=== PATIENT | female | born 1985 | race African-American/Black ===

== ENCOUNTER 2016-12-22 01:55 | Emergency (ER) | payer SELFPAY ==
[~2016-12-22] VITALS: Ht 165.1 cm; Wt 136.1 kg
[2016-12-22 02:01] VITALS: BP 182/98
--- NOTE | 2016-12-22 02:13 | PHYS DOC ---
Past Medical History Past Medical History: Other Additional Past Medical Histor: endometriosis Past Surgical History: No Surgical History Alcohol Use: Heavy Drug Use: None Adult General Chief Complaint Chief Complaint: SKIN PROBLEM HPI HPI Patient is a 31 year old female who presents with complaints of rash around her neck area and the left arm. Patient has no other complaints, and denies fevers, chills, vomiting, diarrhea, shortness of breath or throat swelling. No known exposures, no other people that she knows having similar symptoms. This has been going on for a couple months. Review of Systems Review of Systems Constitutional: Denies fever or chills [] Eyes: Denies change in visual acuity, redness, or eye pain [] HENT: Denies nasal congestion or sore throat or problems swallowing Respiratory: Denies cough or shortness of breath [] Cardiovascular: No chest discomfort GI: Denies abdominal pain, nausea, vomiting, bloody stools or diarrhea [] : Denies dysuria or hematuria [] Musculoskeletal: Denies back pain or joint pain [] Integument: Rash on the lower neck and very upper part of the chest. Neurologic: Denies headache, focal weakness or sensory changes [] Allergies Allergies Allergies Coded Allergies Type Severity Reaction Last Updated Verified No Known Drug Allergies 12/22/16 No Physical Exam Physical Exam Constitutional: Well developed, well nourished, no acute distress, non-toxic appearance. [] HENT: Normocephalic, atraumatic, oropharynx moist, no oral exudates, nose normal. Airways patent, no stridor, no drooling. Eyes: PERRLA, EOMI, conjunctiva normal, no discharge. [] Neck: Normal range of motion, no tenderness, supple, no stridor. [] Cardiovascular:Heart rate regular rhythm, no murmur, normal perfusion Lungs & Thorax: Bilateral breath sounds clear to auscultation, no tachypnea Abdomen: Bowel sounds normal, soft, no tenderness, no masses, no pulsatile masses. [] Skin: Warm, dry. Rash It appears to be in the pattern of sun exposed area around the neck. No petechia, no papules, no macules, no weeping, no desquamation. Back: Normal range of motion Extremities: No tenderness, no cyanosis ROM intact, no edema. [] Neurologic: Alert and oriented X 3, normal motor function, no focal deficits noted. Normal voice Psychologic: Affect normal, judgement normal, mood normal. [] Current Patient Data Vital Signs Vital Signs Date Time Temp Pulse Resp B/P (MAP) Pulse Ox O2 Delivery O2 Flow Rate FiO2 12/22/16 02:01 97.8 85 18 99 Room Air 97.8 EKG EKG [] Radiology/Procedures Radiology/Procedures [] Course & Med Decision Making Course & Med Decision Making Pertinent Labs and Imaging studies reviewed. (See chart for details) Patient is nontoxic and looks well, physical exam is unremarkable with the excess exceptional for nonspecific rash around the base of the neck. There doesn 't seem to be any involvement of the neck or the lungs on the time of this ED visit. This well-appearing, nontoxic patient with a chronic rash is found to be stable for outpatient follow-up. I advised the patient to follow up by one of the local clinics and receive a dermatology referral for proper evaluation by specialist. A list of clinics will be provided to the patient [] Dragon Disclaimer Dragon Disclaimer This electronic medical record was generated, in whole or in part, using a voice recognition dictation system. Departure Departure Impression: Primary Impression: Rash and nonspecific skin eruption Disposition: HOME, SELF-CARE Condition: STABLE Patient Instructions: Rash Additional Instructions: His follow-up at one of the clinics in the list provided to you and request a referral to a pet caretaker alternatively he can call [facility] and request appointment with dermatology Scripts Diphenhydramine Hcl (BENADRYL) 25 Mg Capsule 25 MG PO TID for 5 Days, #15 CAP Prov: Jaison LEWIS MD 12/22/16 Mineral Oil/Petrolatum,White (EUCERIN CREME ) 120 Gm Cream..g. 1 DON TP TID for WOUND CARE, #1 TUBE Prov: Jaison LEWIS MD 12/22/16 Jaison LEWIS MD Dec 22, 2016 02:13
[2016-12-22] MEDS ORDERED: DIPH25CA58 PO (02:27)
[2016-12-22] MEDS ORDERED: MINE120C TP (02:27)
== END 2016-12-22 02:33 | disposition home or self-care (01) ==
LOC: ER 01:55
DX: R21 Rash and other nonspecific skin eruption (principal)
CPT/HCPCS: 99282; 99283

== ENCOUNTER 2019-04-10 02:25 | Emergency (ER) | payer OTHER ==
[~2019-04-10] VITALS: Ht 165.1 cm; Wt 147.9 kg
[~2019-04-10 02:25] MED LIST: DIPH25CA58 PO; MINE120C TP
[2019-04-10 02:35] VITALS: BP 165/115
[2019-04-10] MEDS ORDERED: HYDROcodone/APAP 5/325MG 1 TAB TABLET PO ONE (03:30)
--- NOTE | 2019-04-10 03:31 | PHYS DOC ---
General Chief Complaint: FINGER INJURY Stated Complaint: RIGHT RING FINGER SWELLING Time Seen by MD: 02:26 Source: patient Exam Limitations: no limitations History of Present Illness Initial Comments Patient is a 33 year old AA female who presents with tenderness and swelling to distal phalanx of right ring finger. Symptoms began 4 days ago after getting n ails done. Patient was evaluated at local clinic this morning is prescribed doxycycline. Patient has had one dose but states pain is unbearable. On exam, the patient has tenderness swelling of her pulp with paronychia. There is no cellulitis, drainage, weeping, or skin breakdown. No pain with flexion and extension. Onset: last week Pain/Injury Location: right 4th finger Allergies: Coded Allergies: No Known Drug Allergies (Unverified , 12/22/16) Past Medical History Medical History: no pertinent history Surgical History: no surgical history Family History Significant Family History: no pertinent family hx Review of Systems Constitutional: no symptoms reported EENTM: no symptoms reported Respiratory: no symptoms reported Cardiovascular: no symptoms reported Gastrointestinal: no symptoms reported Genitourinary: no symptoms reported Musculoskeletal: see HPI Skin: see HPI Physical Exam General Appearance: mild distress HEENT: PERRL/EOMI Neck: full range of motion Elbow/Forearm: normal inspection Wrist: normal inspection Hand: soft tissue tenderness (right ring finger, tenderness swelling of her pulp with paronychia. There is no cellulitis, drainage, weeping, or skin breakdown. No pain with flexion and extension), swelling Neurologic/Tendon: normal sensation, tendon injury visualized Incision and Drainage Incision and Drainage : Blade Size: 11 I & D Procedure: betadine prep; no gauze wick placed Progress Patient had a digital block performed on right ring finger. A stab incision was then made with a #11 blade in the central finger pad which was nondraining. Second incision was maintained above the knee keep him which then drained approximately 2-3 ml of pus. The cuticle was then lifted up from the nail. The finger is not decompressed and then soaked and pain medications given. Orders, Labs, Meds Pain addressed. Digital block performed and pus draining from distal phalanx. Patient instructed to continue home antibiotics and follow-up with local PCP. Return precautions reviewed. DAVID PAZ DO Apr 10, 2019 03:31
[2019-04-10] MEDS ORDERED: HYDR-2759 PO (03:35)
== END 2019-04-10 03:48 | disposition home or self-care (01) ==
LOC: ER 02:25
DX: L03.011 Cellulitis of right finger (principal)
CPT/HCPCS: 26010; 99283